=== PATIENT | female | born 1990 | race Caucasian/White ===

== ENCOUNTER 2016-08-29 12:30 | Emergency (ER) | payer OTHER ==
[~2016-08-29] VITALS: Ht 157.5 cm; Wt 69.5 kg
[~2016-08-29 12:30] MED LIST: NO MEDS
[2016-08-29 12:50] VITALS: Ht 157.5 cm; Wt 69.5 kg
--- NOTE | 2016-08-29 14:25 | RADRPT ---
PROCEDURE: XR Elbow. CLINICAL INDICATION: Right elbow pain TECHNIQUE: Three views of the right elbow are available for review COMPARISON: None available FINDINGS: There is normal mineralization and alignment of the bones of the elbow. There is no elevation of th e anterior or posterior fat pads to suggest joint effusion. No acute fractures are identified. The surrounding soft tissues are grossly unremarkable. IMPRESSION: 1. Unremarkable right elbow x-ray series. RPTAT: KK .Clarence Cartwright MD, MD Date Time Electronically viewed and signed by .Clarence Cartwright MD, on 08/29/2016 14:24 .B/
[2016-08-29] MEDS ORDERED: NAPR-260 PO (14:32)
[2016-08-29] MEDS ORDERED: MED4DP PO (14:32)
--- NOTE | 2016-08-29 16:01 | ERD ---
DATE OF SERVICE: 08/29/2016 HISTORY OF PRESENT ILLNESS: The patient is a 25-year-old female coming in complaining of right arm pain for 2 months. Patient states the pain has been getting worse. She says it feels that she alexander ot straighten her arm. She denies any traumatic injury. She denies any numbness, and she has pain to her right elbow that radiates down her arm. She states that she is right hand dominant. She has not taken any medication for her symptoms. PAST MEDICAL HISTORY: Denies medical problems. ALLERGIES: DENIES. MEDICATIONS: Denies. SURGICAL HISTORY: Denies. SOCIAL HISTORY: Denies. REVIEW OF SYSTEMS: A 12-point review of systems was done. Refer to HPI for positives, all other sy stems negative. PHYSICAL EXAMINATION VITAL SIGNS: Temperature is 98.1, pulse 79, blood pressure 133/68, respiratory 18, O2 saturation 10 0% on room air. Pain intensity of 4/10. GENERAL: The patient is well-appearing, well-nourished, no acute distress. HEENT: Atraumatic. Conjunctivae are pink. Pupils equal, round, and reactive to light. There is no s cleral icterus. Tympanic membranes clear bilaterally. Oropharynx clear. No nystagmus or photophobia . CHEST: Clear to auscultation bilaterally. There are no rales, wheezes or rhonchi. HEART: Regular rate and rhythm. No murmurs, clicks, rubs or gallops. No S3 or S4. ABDOMEN: Soft, nontender and nondistended. Good bowel sounds. No rebound or guarding. No gross nyiah tonitis. No gross organomegaly or masses. No Calloway sign or McBurney point tenderness. EXTREMITIES: The patient's strength is 5/5 bilaterally with good television picture tube rebuilder strength, normal radial, ulna r and median nerve enervation. Capillary refill is less than 2 seconds. Pulses are intact. Compar tments are soft. The patient has full range of motion of the right upper extremity at the elbow, sh oulder and wrist. EMERGENCY ROOM COURSE: The patient had a 3-view x-ray done of her right elbow in the ER which showe d unremarkable right elbow x-ray series. DIAGNOSIS: Right elbow pain, unspecified. MEDICAL DECISION MAKING: I have low suspicion for acute fracture or dislocation, Low suspicion for neuro deficit, low suspicion for compartment syndrome, low suspicion for bacterial infection or bact erial etiology. DISCHARGE: The patient is discharged stable. Patient is given a prescription for naproxen, Medrol Dosepak and told to follow up with primary care within 1 to 2 days for reevaluation. The patient wa s told if symptoms progress or worsen to return to the ER. All other questions answered at time of discharge. Discharge summary given at the time of departure. Patient understood and complied with plan. Dictated By: FRANCHESCA RAY for [facility] Conf#: [id number] DID#: [id number]
== END 2016-08-29 14:41 | disposition home or self-care (01) ==
LOC: FTE 12:30
DX: M25.521 Pain in right elbow (principal)

== ENCOUNTER 2016-09-27 08:55 | Emergency (ER) | payer OTHER ==
[~2016-09-27] VITALS: Wt 70.0 kg
[~2016-09-27 08:55] MED LIST changes: +MED4DP PO; +NAPR-260 PO
--- NOTE | 2016-09-27 10:59 | RADRPT ---
PROCEDURE: XR Knee. CLINICAL INDICATION: knee pain TECHNIQUE: AP, lateral and oblique views of the left knee were obtained. COMPARISON: None. FINDINGS: No fracture is identified. The osseous structures are intact. There is a small sclerotic focus in the proximal tibia medially measuring up to 8 mm which may be a bone island. The joint spaces are p reserved. There is a moderate joint effusion. IMPRESSION: No evidence of acute osseous abnormality. Small sclerotic focus in the proximal tibia which may be a bone island. Joint effusion. RPTAT: VV .Hank Reyes MD, MD Date Time Electronically viewed and signed by .Hank Reyes MD, MD on 09/27/2016 10:58 .O/
[2016-09-27] MEDS ORDERED: NAPR-260 PO (11:09)
--- NOTE | 2016-09-27 11:14 | ERD ---
ER Documentation Chief Complaint Date/Time DATE: 09/27/16 TIME: 11:11 Chief Complaint NON TRAUMATIC LEFT KNEE PAIN AND MILD SWELLING FOR 2 WKS HPI Patient is a 25-year-old female who presents with swelling in her left knee that she has had for 2 weeks that began to get painful within the last 2 days. Pain is mild and is 2 out of 10. She denies any limited range of motion or difficulty ambulating. She denies any trauma. She denies any redness. She denies any fevers. She denies any chest pain or shortness of breath. She denies any recent travel. She denies any pain tenderness or swelling behind the calf. ROS All systems reviewed and are negative except as per history of present illness. Medications Home Meds Active Scripts Naproxen* (Naprosyn*) 500 Mg Tablet, 500 MG PO BID Y for PAIN AND/OR INFLAMMATION, #30 TAB Prov:ALEXEY CALLEJAS PA-C 09/27/16 Methylprednisolone* (Medrol* DOSE PACK) 4 Mg/Dose-Pack Tab.ds.pk, 4 MG PO . DIRECTED, #1 PACKET Prov:LEN BARR PA-C 08/29/16 Naproxen* (Naprosyn*) 500 Mg Tablet, 500 MG PO BID Y for PAIN AND/OR INFLAMMATION, #30 TAB Prov:LEN BARR PA-C 08/29/16 Reported Medications [No Meds] No Conflict Check 05/27/12 Allergies Allergies: Coded Allergies: No Known Allergy (Verified , 10/12/14) PMhx/Soc History of Surgery: No Anesthesia Reaction: No Hx Neurological Disorder: No Hx Respiratory Disorders: No Hx Cardiac Disorders: No Hx Psychiatric Problems: No Hx Miscellaneous Medical Probl: No Hx Alcohol Use: No Hx Substance Use: No Hx Tobacco Use: No Smoking Status: Never smoker FmHx Family History: No diabetes Physical Exam Vitals Vital Signs Date Time Temp Pulse Resp B/P Pulse Ox O2 Delivery O2 Flow Rate FiO2 09/27/16 09:00 97.9 80 18 106/71 100 Physical Exam General: well developed, well nourished, alert, nontoxic, no distress Head: normocephalic, atraumatic Neck: Supple, nontender, no lymphadenopathy, no midline tenderness Respiratory: Clear to auscaultation bilaterally, speaks in full sentences, no use of accesory muscles or labored breathing, no rales, ronchi, or wheezing Cardiovascular: RRR, No murmurs GI: soft, non tender, non distended, negative murphys sign, negative mcburneys point tenderness, no cva tenderness bilaterally, no rebound or guarding Back: no midline tenderness, no step offs or bony abnormalities, sensation to light touch in tact Extremities: Left knee: Mild warmth anteriorly over the patella, 2+ edema, no erythema, full range of motion active and passively, able to ambulate without any pain or limitations, sensation to light touch intact, no tenderness redness or swelling or induration behind the calf Procedures/MDM 25-year-old female presents with knee pain and swelling. Vital signs are all within normal limits. Low concern for DVT. Low concern for septic joint. Her knee is mildly swollen and mildly warm anteriorly however there is no evidence of infection. X-ray shows knee effusion. Patient states she has appointment with primary care doctor within the next week. I gave her copy of x-ray results she can follow up with primary care as well as an Popeye wrap and a prescription for anti-inflammatories. Recommended this patient follow up with her primary care doctor within 48 hours or return to the emergency room for any worsening of symptoms. However this time I do believe there is suitable for outpatient management. I answered all their questions and they agreed with the plan and were discharged home. Departure Diagnosis: Primary Impression: Knee effusion Condition: Stable Patient Instructions: Knee Effusion Additional Instructions: Llame al doctor MIKO y jonh suzanne DENIZ PARA DENTRO DE 1-2 SHAFER.Dgale a la secretaria que nosotros le instruimos hacer esta deniz.Avise o llame si harley condicin se empeora antes de la deniz. Regresa aqui si peor o no mejor. ALEXEY CALLEJAS PA-C Sep 27, 2016 11:14
== END 2016-09-27 11:48 | disposition home or self-care (01) ==
LOC: FTE 08:55
DX: M25.462 Effusion, left knee (principal)
CPT/HCPCS: 73562; Z7502

== ENCOUNTER 2019-04-10 02:04 | Emergency (ER) | payer OTHER ==
[~2019-04-10] VITALS: Ht 154.9 cm; Wt 86.5 kg
[~2019-04-10 02:04] MED LIST changes: +CEPH-443 PO; -NAPR-260 PO; +NAPR-985 PO
[2019-04-10 02:24] VITALS: BP 143/68; PULSE 92; RESP 20; Ht 154.9 cm; Wt 86.5 kg
== END 2019-04-10 04:55 | disposition home or self-care (01) ==
LOC: FTE 02:04
DX: R30.0 Dysuria (principal)
CPT/HCPCS: 81001; 81003; 99283